=== PATIENT | male | born 1990 | race Caucasian/White ===

== ENCOUNTER 2019-08-04 09:15 | Emergency (ER) | payer OTHER | END 2019-08-04 12:15 | disposition other institution (70) | LOC: ED 09:15 | DX: Z02.89 Encounter for other administrative examinations (principal) ==

== ENCOUNTER 2019-08-04 09:15 | Emergency (ER) | payer SELFPAY ==
[~2019-08-04] VITALS: Ht 175.3 cm; Wt 95.3 kg
[2019-08-04 09:48] VITALS: Ht 175.3 cm; Wt 95.3 kg
[2019-08-04 12:15] VITALS: BP 113/73
== END 2019-08-04 12:15 | disposition other institution (70) ==
LOC: ED 09:15
DX: S06.891A Other specified intracranial injury with loss of consciousness of 30 minutes or less, initial encounter (principal); Z88.0 Allergy status to penicillin; W21.03XA Struck by baseball, initial encounter; Y93.64 Activity, baseball; Y92.320 Baseball field as the place of occurrence of the external cause; Y99.8 Other external cause status

== ENCOUNTER 2019-12-31 01:04 | Emergency (ER) | payer SELFPAY ==
[~2019-12-31] VITALS: Ht 170.2 cm; Wt 77.1 kg
[2019-12-31 01:13] VITALS: Ht 170.2 cm; Wt 77.1 kg
[2019-12-31 01:43] VITALS: BP 147/85
== END 2019-12-31 01:43 | disposition home or self-care (01) ==
LOC: ED 01:04
DX: H10.9 Unspecified conjunctivitis (principal); F31.9 Bipolar disorder, unspecified; Z88.0 Allergy status to penicillin